=== PATIENT | male | born 1935 ===

== ENCOUNTER → 2021-06-22 | Outpatient (REF) | payer SELFPAY ==
[2021-06-22 08:36] LABS: Prothrombin Time (Protime)PT. 45.9 SECONDS (11.7-14.9)
== END | disposition home or self-care (01) ==
LOC: OLS.SW1020 05:00
PROVIDERS: Visit Provider Internal Medicine
DX: I48.91 Unspecified atrial fibrillation (principal)
CPT/HCPCS: 36415; 85610

== ENCOUNTER → 2021-06-23 | Outpatient (REF) | payer SELFPAY ==
[2021-06-23 10:30] LABS: Prothrombin Time (Protime)PT. 42.2 SECONDS (11.7-14.9)
[2021-06-23 10:46] LABS: International Normalized Ratio 4.5
== END | disposition home or self-care (01) ==
LOC: OLS.SW1020 05:00
PROVIDERS: Visit Provider Internal Medicine
DX: Z79.899 Other long term (current) drug therapy (principal)
CPT/HCPCS: 36415; 85610

== ENCOUNTER → 2021-06-26 | Outpatient (REF) | payer SELFPAY ==
[2021-06-26 08:09] LABS: International Normalized Ratio 4.3; Prothrombin Time (Protime)PT. 40.3 SECONDS (11.7-14.9)
== END | disposition home or self-care (01) ==
LOC: OLS.SW1020 05:00
PROVIDERS: Visit Provider Internal Medicine
DX: Z79.01 Long term (current) use of anticoagulants (principal)
CPT/HCPCS: 36415; 85610

== ENCOUNTER 2021-06-28 05:00 | Outpatient (REF) | payer SELFPAY ==
[2021-06-28 07:52] LABS: Hematocrit 25.5 % (40-54); Hemoglobin 8.1 g/dL (13.0-16.5); Mean Corp Hgb Conc 31.8 g/dL (32-36); Mean Corpuscular Hgb 29.6 pg (27.0-32.0); Mean Corpuscular Volume 93.1 fL (80-94); Mean Platelet Vol. 10.8 fl (6.2-12.0); Platelet Count 174 K/mm3 (150-450); RBC Distribution Width CV 16.2 % (11.6-14.6); RBC Distribution Width SD 55.1 fl (35.1-43.9); Red Blood Count 2.74 M/mm3 (4.6-6.2); White Blood Count 4.7 K/mm3 (4.4-11.0)
[2021-06-28 08:21] LABS: Anion Gap 4 (5-15); BUN 17 mg/dL (7-18); Calcium,Total 8.4 mg/dL (8.5-10.1); Chloride 112 mmol/L (98-107); Creatinine, Serum 1.13 mg/dL (0.70-1.30); EST Glomerular Filtration Rate 65 mL/min (>60); Est Glom Filt Rate - Afr Amer 79 mL/min (>60); Glucose 87 mg/dL (74-106); Potassium 3.2 mmol/L (3.5-5.1); Sodium Level 145 mmol/L (136-145)
[2021-06-28 08:44] LABS: International Normalized Ratio 3.1; Prothrombin Time (Protime)PT. 31.1 SECONDS (11.7-14.9)
== END 2021-06-28 23:59 | disposition home or self-care (01) ==
LOC: OLS.SW1020 05:00
PROVIDERS: Visit Provider Internal Medicine
DX: U07.1 COVID-19 (principal); N17.9 Acute kidney failure, unspecified; I48.91 Unspecified atrial fibrillation; I25.810 Atherosclerosis of coronary artery bypass graft(s) without angina pectoris; N39.0 Urinary tract infection, site not specified; Z79.01 Long term (current) use of anticoagulants
CPT/HCPCS: 36415; 80048; 85027; 85610